=== PATIENT | male | born 1940 | race Caucasian/White ===

== ENCOUNTER → 2017-06-03 | Day surgery (SDC) | payer MEDICARE, OTHER ==
[~2017-06-03] VITALS: Ht 186.7 cm; Wt 105.0 kg
[~2017-06-03] MED LIST: ASPI325T33 PO; CHLORHEXIDINE GLUCONATE 2 % 1 PACK (2 CLOTHS) TOPICAL PRN; CYCLOPENTOLATE HCL 1% OPHT SOLN 2 ML BTL ONE; EZET1TAB8 PO; FLURBIPROFEN 0.03% OPHT SOLN 2.5 ML BTL ONE; FLUT1SPR5 EACH NARE; GLUC500T4 PO; INSULIN HUMAN REGULAR 1,000 UNITS/10 ML VIAL SQ PRN; LACTATED RINGER'S 1000 ML IV PRN; LEVO-86 PO; LEVO112T29 PO; LIDOCAINE HCL 1% PF 30 ML VIAL ONE; LIDOCAINE HCL 2% JELLY 5 ML SYRINGE ONE; LIDOCAINE HCL 2% JELLY 5 ML SYRINGE TOPICAL ONE; LOSA25TA PO; METO50TA PO; METOPROLOL TARTRATE 25 MG TAB PO PRN; MULT-65 PO; NITR1SUB3 SL; PHENYLEPHRINE HCL 10% OPTH SOLN 5 ML BTL ONE; POVIDONE IODINE 5% (ANTISEPSIS KIT) 4 APPLICATIONS EACH NARE PRN; PRIL20TA2 PO; PROPARACAINE HCL 0.5% OPHT SOLN 15 ML BTL LEFT EYE ONE; PROPARACAINE HCL 0.5% OPHT SOLN 15 ML BTL ONE; ROSU5 PO; SODIUM CHLORID 0.9% 500 ML IV PRN; TOBRAMYCIN/DEXAMETHASONE OPTH OINT 3.5 GM TUBE ONE
[2017-06-03] MEDS: FLURBIPROFEN 0.03% OPHT SOLN 2.5 ML BTL LEFT EYE SCH ×4 (07:40→07:55)
[2017-06-03] MEDS: PHENYLEPHRINE HCL 10% OPTH SOLN 5 ML BTL LEFT EYE SCH ×4 (07:40→07:55)
[2017-06-03] MEDS: CYCLOPENTOLATE HCL 1% OPHT SOLN 2 ML BTL LEFT EYE SCH ×4 (07:40→07:55)
[2017-06-03] MEDS: TROPICAMIDE 1% OPHT SOLN 15 ML BTL LEFT EYE SCH ×4 (07:40→07:55)
[2017-06-03 09:00] VITALS: BP 138/86; PULSE 61; RESP 16; TEMP 98.4; O2SAT 99
--- NOTE | 2017-06-03 10:19 | MP ---
cc: Rashid Atkinson MD DATE OF OPERATION: 06/03/2017 (topical clear corneal phako) Left eye Rashid Atkinson MD TCG/TI , 09:59 AM , 10:18 AM
--- NOTE | 2017-06-07 12:26 | MP ---
cc: Rashid Atkinson MD DATE OF OPERATION: 06/03/[address] [facility] NUMBER: [id number] PREOPERATIVE DIAGNOSIS: Visually significant cataract left eye. POSTOPERATIVE DIAGNOSIS: Visually significant cataract left eye. OPERATION: Phacoemulsification with posterior chamber lens implantation, left eye. SURGEON: Rashid Atkinson MD ANESTHESIA: Topical with MAC. COMPLICATIONS: None. PROCEDURE: After informed consent was obtained, the patient was brought into the operative suite and placed on appropriate monitors by the Anesthesia Service. The patient had been given dilating drops and topical lidocaine gel in the holding area. The patient's operative eye was then prepped and draped in the usual sterile fashion. A wire lid speculum was placed. Further 2% lidocaine was then dropped on the cornea prior to beginning the procedure. A paracentesis incision was made in the peripheral cornea with a 1 mm aleisha keratome. The anterior chamber was filled with viscoelastic. The anterior chamber was then entered through a stepped, clear corneal incision using a sharp 3 mm aleisha keratome. A circular tear capsulorrhexis was then made with a bent needle cystitome. Following hydrodissection of the lens nucleus with balance saline, phaco-emulsification of the nucleus was performed using a modified chopping technique. The remaining cortex was removed with irrigation/aspiration. The prior two procedures were both performed using the handpieces of the [employer] phaco unit. The capsular bag was then filled with viscoelastic. The intraocular lens was then injected into the capsular bag and positioned. The type of intraocular lens and its power can be found elsewhere in this chart. The remaining viscoelastic was then removed from the anterior chamber with the IA handpiece. The anterior chamber was reformed with balanced saline. The wound was then closed securely with stromal hydration. It was found to be watertight to an intraocular pressure of at least 30 mmHg by palpation. A small amount of balanced salt solution was then removed through the paracentesis site and the intraocular pressure at the end of the case was approximately 20 by palpation. All drapes were then removed. TobraDex ointment was then placed in the eye, which was closed beneath a semi-pressure patch dressing. The patient tolerated this procedure well and left the operating room awake and alert. The patient is to follow-up in my office in the morning. MD GARY Lea , 12:55 PM , 05:50 PM
== END | disposition home or self-care (01) ==
LOC: PHSDC 06:56
PROVIDERS: ATTEND Optometrist Occupational Vision
DX: H25.812 Combined forms of age-related cataract, left eye (principal)
CPT/HCPCS: 00142; 66984; J7040; V2632

== ENCOUNTER → 2017-07-22 | Day surgery (SDC) | payer MEDICARE ==
[~2017-07-22] VITALS: Ht 186.7 cm; Wt 105.0 kg
[~2017-07-22] MED LIST changes: -CYCLOPENTOLATE HCL 1% OPHT SOLN 2 ML BTL ONE; -EZET1TAB8 PO; -FLURBIPROFEN 0.03% OPHT SOLN 2.5 ML BTL ONE; -INSULIN HUMAN REGULAR 1,000 UNITS/10 ML VIAL SQ PRN; -LEVO-86 PO; -LIDOCAINE HCL 1% PF 30 ML VIAL ONE; +LIDOCAINE HCL 1% PF 5 ML AMPULE ONE; -LIDOCAINE HCL 2% JELLY 5 ML SYRINGE ONE; -PHENYLEPHRINE HCL 10% OPTH SOLN 5 ML BTL ONE; -PROPARACAINE HCL 0.5% OPHT SOLN 15 ML BTL LEFT EYE ONE; -PROPARACAINE HCL 0.5% OPHT SOLN 15 ML BTL ONE; +PROPARACAINE HCL 0.5% OPHT SOLN 15 ML BTL RIGHT EYE ONE
[2017-07-22] MEDS: PHENYLEPHRINE HCL 10% OPTH SOLN 5 ML BTL RIGHT EYE SCH ×4 (08:30→08:45)
[2017-07-22] MEDS: FLURBIPROFEN 0.03% OPHT SOLN 2.5 ML BTL RIGHT EYE SCH ×4 (08:30→08:45)
[2017-07-22] MEDS: CYCLOPENTOLATE HCL 1% OPHT SOLN 2 ML BTL RIGHT EYE SCH ×4 (08:30→08:45)
[2017-07-22] MEDS: TROPICAMIDE 1% OPHT SOLN 15 ML BTL RIGHT EYE SCH ×4 (08:30→08:45)
[2017-07-22 10:25] VITALS: BP 148/86; PULSE 68; RESP 16; TEMP 98.2; O2SAT 98
--- NOTE | 2017-07-22 10:27 | MP ---
cc: Rashid Atkinson MD DATE OF OPERATION: 07/22/2017 [facility] # [id number] PREOPERATIVE DIAGNOSIS: Visually significant cataract, right eye. POSTOPERATIVE DIAGNOSIS: Visually significant cataract, right eye. OPERATION: Phacoemulsification with posterior chamber lens implantation, right eye. SURGEON: Rashid Atkinson MD ANESTHESIA: Topical with MAC. COMPLICATIONS: None. PROCEDURE: After informed consent was obtained, the patient was brought into the operative suite and placed on appropriate monitors by the Anesthesia Service. The patient had been given dilating drops and topical lidocaine gel in the holding area. The patient's operative eye was then prepped and draped in the usual sterile fashion. A wire lid speculum was placed. Further 2% lidocaine was then dropped on the cornea prior to beginning the procedure. A paracentesis incision was made in the peripheral cornea with a 1 mm aleisha keratome. The anterior chamber was filled with viscoelastic. The anterior chamber was then entered through a stepped, clear corneal incision using a sharp 3 mm aleisha keratome. A circular tear capsulorrhexis was then made with a bent needle cystitome. Following hydrodissection of the lens nucleus with balance saline, phaco-emulsification of the nucleus was performed using a modified chopping technique. The remaining cortex was removed with irrigation/aspiration. The prior two procedures were both performed using the handpieces of the [employer] phaco unit. The capsular bag was then filled with viscoelastic. The intraocular lens was then injected into the capsular bag and positioned. The type of intraocular lens and its power can be found elsewhere in this chart. The remaining viscoelastic was then removed from the anterior chamber with the IA handpiece. The anterior chamber was reformed with balanced saline. The wound was then closed securely with stromal hydration. It was found to be watertight to an intraocular pressure of at least 30 mmHg by palpation. A small amount of balanced salt solution was then removed through the paracentesis site and the intraocular pressure at the end of the case was approximately 20 by palpation. All drapes were then removed. TobraDex ointment was then placed in the eye, which was closed beneath a semi-pressure patch dressing. The patient tolerated this procedure well and left the operating room awake and alert. The patient is to follow-up in my office in the morning. Rashid MD GARY Mendez , 10:05 AM , 10:26 AM
== END | disposition home or self-care (01) ==
LOC: PHSDC 06:11
PROVIDERS: ATTEND Optometrist Occupational Vision
DX: H25.811 Combined forms of age-related cataract, right eye (principal)
CPT/HCPCS: 00142; 66984; J7040; V2632